=== PATIENT | female | born 1935 | race Caucasian/White ===

== ENCOUNTER 2018-05-26 11:08 | Emergency (ER) | payer MEDICARE, OTHER ==
[2018-05-26] MEDS: KETOROLAC 15 MG INJ IV (12:22)
[2018-05-26 14:17] LABS: ADD MAN DIFF? NO
[2018-05-26 14:24] LABS: WHITE BLOOD COUNT 5.8 10^3/ul (4.8-10.8)
[2018-05-26 14:24] LABS: BASOPHIL # 0.1 10^3/ul (0.0-0.1); BASOPHILS % 1.2 % (0.0-2.0); EOSINOPHILS # 0.1 10^3/ul (0.0-0.5); EOSINOPHILS % 1.9 % (0.0-7.0); HEMATOCRIT 42.8 % (37.0-47.0); HEMOGLOBIN 14.3 g/dl (12.0-16.0); LYMPHOCYTES # 1.6 10^3/ul (0.8-2.9); LYMPHOCYTES % 27.5 % (15.0-51.0); MEAN CORPUSCULAR HEMOGLOBIN 30.6 pg (29.0-33.0); MEAN CORPUSCULAR HGB CONC 33.4 g/dl (32.0-37.0); MEAN CORPUSCULAR VOLUME 91.6 fl (82.0-101.0); MEAN PLATELET VOLUME 10.4 fl (7.4-10.4); MONOCYTE # 0.6 10^3/ul (0.3-0.9); MONOCYTES % 9.5 % (0.0-11.0); NEUTROPHIL # 3.5 10^3/ul (1.6-7.5); NEUTROPHILS % 59.6 % (39.0-77.0); PLATELET COUNT 249 10^3/UL (140-415); RED BLOOD COUNT 4.67 10^6/ul (4.20-5.40)
[2018-05-26 14:53] LABS: ANION GAP 9 (8-16); BLOOD UREA NITROGEN 26 mg/dl (7-20); CALCIUM 9.7 mg/dl (8.4-10.2); CARBON DIOXIDE 28 mmol/L (21-31); CHLORIDE 111 mmol/L (97-110); GLUCOSE 88 mg/dl (70-220); POTASSIUM 4.4 mmol/L (3.5-5.1); SODIUM 144 mmol/L (135-144)
[2018-05-26 15:01] LABS: C-REACTIVE PROTEIN < 0.5 mg/dl (0.0-0.9)
[2018-05-26 15:12] LABS: URIC ACID 5.3 mg/dl (3.1-7.9)
[2018-05-26 15:42] LABS: ERYTHROCYTE SEDIMENTATION RATE 10 mm/Hr (0-30)
== END 2018-05-26 16:43 | disposition home or self-care (01) ==
LOC: FTE 11:08
DX: M25.562 Pain in left knee (principal); I10 Essential (primary) hypertension
CPT/HCPCS: 36415; 73562; 80048; 84560; 85025; 85651; 86140; 93971; 99285-25